=== PATIENT | male | born 1955 | race Caucasian/White ===

== ENCOUNTER 2019-02-16 00:14 | Emergency (ER) | payer BC, SELFPAY ==
[2019-02-16 00:16] VITALS: BP 186/97; PULSE 92; RESP 16; TEMP 36.7; O2SAT 98; BMI 36.4
--- NOTE | 2019-02-16 00:53 | ED.DCSUM_ITS ---
- ER Visit Summary Date of Service: 02/16/19 Chief Complaint: Allergic reaction History of Present Illness: The patient is a 63 M who presents for evaluation of an allergic reaction. Patient states yesterday he began developing swelling of his lips and an itchy rash on the back of his head. It gradually progressed, and acutely worsened this evening. Patient states the rash is spread to other parts of his body and does itch. He denies any sensation of his throat or tongue swelling, any wheezing or shortness of breath, nausea or vomiting, dizziness or lightheadedness, chest pain. Patient is on losartan for high blood pressure. He states he brought a cabbage yesterday and took it, eating it yeste rd and today. He also fell 3 days ago, injuring his left elbow, and states he has been taking ibuprofen for that with the last dose being around the same time his symptoms acutely worsened this evening. Patient denies any history of any prior allergic reactions. Physical Examination: Vital signs: afebrile, hemodynamically stable, no hypoxia on room air General: well nourished, well developed, in no distress Skin: warm, dry, urticarial rash noted on the face, neck, upper chest, around the waistline, a few lesions on the upper and lower extremities and the back, no vesicles, purpura or petechiae, no pallor HEENT: normocephalic and atraumatic; PERRL, EOMI, moist mucous membranes, mild edema of the upper and lower lips, no tongue edema, oropharynx is clear without lesions or swelling noted, neck is supple Cardiovascular: regular rate and rhythm without murmurs, no peripheral edema, 2+ pulses all distal extremities Respiratory: No increased work of breathing, lungs are clear to auscultation bilaterally, no rales, rhonchi or wheezing, no stridor Abdominal: Abdomen is soft, nontender with normoactive bowel sounds, no guarding or rebound, no masses MSK: Moves all extremities, no deformities, normal strength, left elbow has edema of the olecranon bursa with erythema and tenderness, mild surrounding erythema Neuro: Awake and alert, oriented ?4. No facial droop, sensation and motor function intact and symmetric Test Results: Clinical Impression(s) from Imaging Studies Elbow X-Ray 02/16/19 02:00 IMPRESSION: Degenerative changes. No acute fracture or dislocation. at 0223 Reported and signed by: Van Roman MD Electronically Signed: Van Roman, at 2:21 EDT Tel , Service support , Medications Given Discontinued Medications Diphenhydramine HCl (Benadryl) 50 mg PO X1 ONE Stop: 02/16/19 00:50 Last Admin: 02/16/19 01:05 Dose: 50 mg Prednisone () 60 mg PO X1 ONE Stop: 02/16/19 00:50 Last Admin: 02/16/19 01:05 Dose: 60 mg Emergency Department Course and Treatment: Patient presents with a rash consistent with urticaria and mild lip edema. Patient is on losartan, which has a lower risk for angioedema; and given patient that patient also has the rash, this is consistent with an allergic reaction and less consistent with LUKE induced angioedema. Patient was given Benadryl for his pruritus and prednisone for the allergic reaction. Patient does have the olecranon bursitis noted on physical exam it developed after he fell onto his elbow. An x-ray was performed that showed no fractures or dislocations of the elbow. Close inspection of the elbow shows no breakdown in the skin. There is erythema over the bursa itself, however once patient stopped resting his weight on his elbow and forearm, the surrounding erythema of the elbow resolved and was normal skin color normal temperature again. There was no appearance of cellulitis. In my professional opinion, this is a traumatic bursitis rather than septic bursitis. Patient was given an Luke wrap for compression and is to follow-up with his doctor for further evaluation. Duration after the medications, patient had some improvement in the edema of his lips, however he had progression of the urticarial rash. It was now more prominent on the upper extremities and the chest. Patient still has no s hortness of breath, sensation of tongue or throat swelling, wheezing, lightheadedness or dizziness, or any complaints other than itching in the new urticarial lesions. I did discuss with patient that if the urticaria becomes severe, it would be an option to give him intramuscular epinephrine, and patient declined after we discussed risks and benefits. Patient was given a prescription for an EpiPen, Benadryl and a prednisone taper. He was instructed to stop taking the ibuprofen at home in case this is the allergen causing his reaction. He is to return if any worsening of his condition, and will follow up with his doctor if he continues to have the urticaria without relief from the medications. We discussed signs to watch for that might indicate progression of cellulitis in the left arm. At this time antibiotics were not prescribed as there does not appear to be cellulitis of the elbow or any abrasions or skin breakdowns that would be a possible source of infection for the bursitis after the preceding elbow trauma. Because of the risk of introducing infection into the bursa by draining it in the low suspicion for septic bursitis versus the more likely traumatic bursitis, drainage of the bursa for diagnostic and therapeutic purposes was not performed at this time. Patient is very well-appearing and hemodynamically stable. He was discharged home. Treatment Plan: [] Disposition: [] Impression: Allergic reaction with urticaria, traumatic left olecranon bursitis This note was generated with [employer] dictation software. It may contain incorrect words, spelling, and punctuation that were not noted in review of the chart prior to signing ED Disposition - Plan for ED Patient: Disposition: Home or Assisted Living Instructions: Discharge Instructions: Using an EpiPen Auto-Injector, ED Allergic Reaction General Other, ED Urticaria, ED Bursitis Elbow Olecranon Prescriptions: DiphenhydrAMINE [Benadryl] 25 mg PO Q6H PRN PRN #30 cap PRN Reason: Itching RX: Epi Pen (for allergic rxn) 0.3 mg IM X1 PRN #2 syringe PRN Reason: severe allergic reaction RX: Prednisone 10 mg PO UD #33 tab Referrals: Yemi Nova [NON-STAFF] - 3-5 Days if not improving Additional Instructions: Take the prednisone daily as prescribed. Use the Benadryl as needed to help with the itching from your rash. If at any time you develop shortness of breath, wheezing, dizziness or lightheadedness, severe swelling of your lips, any sensation of your throat or tongue swelling, abdominal pain with vomiting, or severe worsening of your rash, please use the EpiPen and return to the emergency department immediately for another evaluation. You may use the Luke wrap around her elbow to help compress the swelling. You may use [id number] pain medication as needed for pain, however do not use the pain medication you have been using for the past couple days, as this could be the reason you are having an allergic reaction. Please follow-up with your doctor this week for reevaluation of your rash and of your elbow. If at any point you develop a fever, worsening severe pain in the elbow, any concern for development of infection, or any other concerns, return immediately to the emergency department for another evaluation.
[2019-02-16] MEDS: predniSONE 20 MG Tablet 60 MG PO (01:05)
[2019-02-16] MEDS: DiphenhydrAMINE 25 MG Capsule 50 MG PO (01:05)
--- NOTE | 2019-02-16 02:00 | RAD_ITS ---
HISTORY: left elbow pain COMPARISON: None FINDINGS: XR Elbow Min 3 Views: Left. SOFT TISSUES: No acute findings. IV catheter in the antecubital fossa. BONES/JOINTS: No acute fracture or subluxation. Normal alignment. Degenerative changes are noted including a prominent osteophyte off the lateral epicondyle of the humerus. No destructive changes observed. RAD/Elbow min 3 Views IMPRESSION: Degenerative changes. No acute fracture or dislocation. at 0223 Reported and signed by: Van Roman MD Electronically Signed: Van Roman, at 2:21 EDT Tel , Service support ,
[2019-02-16 03:22] VITALS: BP 154/89; PULSE 84; RESP 16; O2SAT 98
== END 2019-02-16 03:23 | disposition home or self-care (01) ==
PROVIDERS: Emergency Provider Emergency Medicine; Family Provider Family Medicine; PCP Family Medicine
DX: L50.0 Allergic urticaria (principal); M70.22 Olecranon bursitis, left elbow; Y93.9 Activity, unspecified; I10 Essential (primary) hypertension; Z79.899 Other long term (current) drug therapy
CPT/HCPCS: 73080; 99283; J7030

== ENCOUNTER → 2020-06-08 06:58 | Outpatient (CLI) | payer BC, SELFPAY ==
[2019-06-23 10:14] VITALS: BMI 36.4
--- NOTE | 2020-06-08 07:03 | CT_ITS ---
STUDY: CT MAXILLOFACIAL SINUSES REASON FOR EXAM: Male, 64 years old. Sinusitis RADIATION DOSAGE (If Supplied By Facility): CTDIvol = ( 33.06 ) mGy, DLP = ( 817.32 ) mGycm TECHNIQUE: The patient was scanned in a multi detector CT scanner. High resolution axial imaging was performed without the administration of intravenous contrast material. Sagittal and coronal images were reconstructed. Individualized dose optimization techniques were used for this CT. COMPARISON: None. FINDINGS: FRONTAL SINUSES: Normal aeration, without mucosal inflammatory disease. ETHMOIDAL SINUSES: Normal aeration, without mucosal inflammatory disease. MAXILLARY SINUSES: Minimal degree of mucosal thickening at the bases of both maxillary sinuses slightly worse on the right side. SPHENOIDAL SINUSES: Normal aeration, without mucosal inflammatory disease. There is patency of the bilateral maxillary infundibuli with normal uncinate processes, ethmoid bullae, and hiatus semilunaris. Normal bilateral middle turbinates. There is hypertrophy of the left inferior nasal turbinate. Normal midline nasal septum. There is patency of the bilateral nasal airways. The visualized osseous structures are normal. The visualized bilateral orbital contents are normal. CT/Sinus/Facial Bone IMPRESSION: Minimal degree of mucosal thickening at the bases of the maxillary sinuses. Hypertrophy of the inferior turbinate in the left nasal fossa. Electronically Signed: Milad Michelle, at 8:41 EDT , Service support ,
== END ==
PROVIDERS: PCP Family Medicine; Referring Provider Otolaryngology; Visit Provider Otolaryngology
DX: J32.9 Chronic sinusitis, unspecified (principal)
CPT/HCPCS: 70486

== ENCOUNTER → 2022-07-19 | Outpatient (CLI) | payer BC, SELFPAY ==
[2022-07-26 13:07] LABS: Alternaria tenuis 0.14 kU/L (Class 0/I); Ash, White 1.74 kU/L (Class III); Aspergillus fumigatus 0.19 kU/L (Class 0/I); Bermuda Grass 2.01 kU/L (Class III); Birch 1.43 kU/L (Class III); Black Walnut 1.66 kU/L (Class III); Cat Hair / Dander,Stand 0.17 kU/L (Class 0/I); Cedar, Mountain 1.44 kU/L (Class III); Cladosporium herbarum 0.17 kU/L (Class 0/I); Cockroach, American 1.51 kU/L (Class III); Cottonwood 1.64 kU/L (Class III); D farinae Mite 2.09 kU/L (Class III); D pteronyssinus 1.56 kU/L (Class III); Dog Epithelia 0.59 kU/L (Class II); Elm, American White 1.48 kU/L (Class III); Immunoglobulin E 623 IU/mL (6-495); Maple/Box Elder 1.64 kU/L (Class III); Mulberry, White 1.43 kU/L (Class III); Oak, White 1.47 kU/L (Class III); Pecan 1.58 kU/L (Class III); Penicillium Notatum 0.31 kU/L (Class 0/I); Pigweed, Rough 1.43 kU/L (Class III); Ragweed, Short/Common 1.46 kU/L (Class III); Russian Thistle 1.47 kU/L (Class III); Sheep Sorrel 1.61 kU/L (Class III); Timothy Grass 5.98 kU/L (Class IV)
[2022-07-26 14:53] LABS: Mouse Urine <0.10 kU/L (Class 0)
[2022-07-26 19:07] LABS: Clam 1.64 kU/L (Class III); Codfish 0.23 kU/L (Class 0/I); Corn 1.35 kU/L (Class II); Egg, White 0.31 kU/L (Class 0/I); Gluten 1.73 kU/L (Class III); Milk (Cow) 0.15 kU/L (Class 0/I); Peanut 1.84 kU/L (Class III); Rice 1.82 kU/L (Class III); SCALLOP 1.55 kU/L (Class III); SESAME SEED 1.76 kU/L (Class III); Shrimp 1.43 kU/L (Class III); Soybean 1.35 kU/L (Class II); Tomato 1.69 kU/L (Class III); Walnut, (Food) 1.49 kU/L (Class III); Wheat 1.62 kU/L (Class III); Yeast 0.14 kU/L (Class 0/I)
[2022-07-27 07:16] LABS: Apple 1.45 kU/L (Class III)
== END | disposition home or self-care (01) ==
LOC: LAB 11:40
PROVIDERS: Referring Provider Otolaryngology; Visit Provider Otolaryngology
DX: T78.40XA Allergy, unspecified, initial encounter (principal)
CPT/HCPCS: 36415; 82785; 86003